=== PATIENT | female | born 1990 | race Caucasian/White ===

== ENCOUNTER 2019-06-08 18:58 | Emergency (ER) | payer OTHER, MEDICAID, SELFPAY ==
--- NOTE | 2019-06-08 19:01 | DI.RAD.S_ITS ---
PROCEDURE: XR ANKLE LT MIN 3V INDICATIONS: ankle injury TECHNIQUE: 3 views of the ankle were acquired. COMPARISON: None. FINDINGS: Bones: Mildly displaced, coronal oriented, intra-articular posterior malleolar fracture. Mildly comminuted, moderately displaced medial malleolar fracture. Moderately displaced spiral fracture of the distal fibula at the level of the syndesmosis. There is probable medial widening of the ankle mortise, difficult to determine given displacement of medial malleolar fragments. There is widening of the tibiotalar articulation anteriorly. Soft tissues: Moderate posterior tibiotalar joint effusion. Achilles tendon appears normal. Mild soft tissue swelling. IMPRESSION: Mild to moderately displaced trimalleolar fracture with slight anterior widening of the tibiotalar articulation and probable medial mortise widening. Dictated by: Rox Au M.D. on 06/08/2019 at 19:30 Approved by: Rox Au M.D. on 06/08/2019 at 19:33
--- NOTE | 2019-06-08 19:02 | ED.LOWEXIN ---
HPI - Extremity Injury (Lower) General Chief Complaint: Extremity Injury, Lower Stated Complaint: ankle injury Time Seen by Provider: 06/08/19 19:00 Source: patient and family Mode of arrival: wheelchair Limitations: no limitations History of Present Illness HPI Narrative: 29-year-old female nonsmoker on Suboxone presents by private auto for evaluation of a left ankle injury suffered this afternoon at 2:00 p.m.. She was walking on an uneven surface and her ankle turned in at which point she heard, and felt a pop and significant pain. She has been unable to bear weight since. She denies any knee or hip injury. She denies any numbness, tingling or weakness. She denies any history of ankle trouble. She has no head neck or back pain. She is otherwise well and free of complaints. She was seen and evaluated by the paramedics on [facility], given a pillow splint and some Tylenol and sent here complaint: ankle injury Onset (ago): hour(s) Type of Injury: inversion Place: street/outdoors Severity: moderate Relieving factors: immobilization and rest Exacerbating factors: weight bearing, movement and palpation Context: walking Associated symptoms: snap/pop sensation, swelling and unable to bear weight Other symptoms: none Treatments prior to arrival: cold therapy and splint Related Data Home Medications Medication Instructions Recorded Confirmed buprenorphine-naloxone [Suboxone] #0 06/24/16 sertraline 100 mg PO QDAY #0 tab 06/24/16 Previous Rx's Medication Instructions Recorded norethindrone (contraceptive) 0.35 mg PO QDAY #1 pac 06/24/16 [Ortho Micronor] Allergies Allergy/AdvReac Type Severity Reaction Status Date / Time No Known Drug Allergies Allergy Verified 06/08/19 19:12 Review of Systems Constitutional Denies chills, Denies fever(s), Denies lethargy and Denies weakness Eyes Denies change in vision, Denies eye discharge, Denies irritation and Denies loss of vision ENT Ears, Nose, Mouth, and Throat: Denies change in voice, Denies neck pain and Denies sore throat Cardiovascular Denies chest pain, Denies irregular heart rhythm, Denies lightheadedness, Denies palpitations, Denies dyspnea, Denies dyspnea on exertion and Denies orthopnea Respiratory Denies cough, Denies dyspnea, Denies dyspnea on exertion and Denies wheezing Gastrointestinal Gastrointestinal: Denies abdominal pain, Denies change in bowel habits, Denies diarrhea, Denies nausea and Denies vomiting Genitourinary Denies hematuria, Denies flank pain, Denies urinary incontinence and Denies urinary urgency Musculoskeletal Reports deformity, Reports joint swelling, Reports limited range of motion and Denies neck pain Integumentary/Breasts Denies pruritus, Denies erythema, Denies rash and Denies wounds Neurologic Denies confusion, Denies loss of vision and Denies weakness Psychiatric Denies anxiety, Denies confusion, Denies depression, Denies homicidal ideation and Denies suicidal ideation Endocrine Denies palpitations Hematologic/Lymphatic Denies easy bruising Allergic/Immunologic Denies wheezing [facility] Surgical History History of third molar tooth extraction Status post delivery (05/02/16) Status post dilation and curettage Social History Smoking Status: Never smoker Exam Narrative Exam Narrative: GEN: AOx3 and in mild distress EYES: Pupils are equal, round, and reactive to light and accommodation. Extraoccular muscles are intact bilaterally. There is no subconjunctival hemorrhage or exudate. CHEST: Lungs are clear to auscultation bilaterally and free of wheezes, rales, or rhonchi. Heart rate is regular rhythm, there are no murmurs, clicks, rubs, or gallops. There is no chest wall tenderness. ABD: Abdomen is soft and nontender. There is no guarding or rebound. Bowel sounds are normal in all 4 quadrants. There is no mass or organomegaly. EXT: Patient has decreased range of motion secondary to pain of left ankle, there is no obvious deformity but noted swelling and ecchymosis. Patient has tenderness throughout. Sensation is intact, cap refill less than 2 seconds with 2+ dorsalis pedis and posterior tibial pulses SKIN: Warm, pink, and dry. No erythema or rash Initial Vital Signs Initial Vital Signs: Vital Signs Pulse Rate 88 06/08/19 19:05 Respiratory Rate 22 06/08/19 19:05 Blood Pressure 158/97 H 06/08/19 19:05 Pulse Oximetry 97 06/08/19 19:05 Procedures Orthopedic Splinting/Casting Injury #1: Side: left Lower Extremity Injury Location: ankle Lower Extremity Immobilizer: posterior splint and stirrup splint Other Orthopedic Equipment: crutches Post splinting neuro exam: intact Post splinting vascular exam: intact Placed by: Nursing Course Orders Ordered: ED Orders 06/08/19 19:01 XR ankle LT min 3V Stat 06/08/19 19:10 CT LE LT wo con Stat Consultations Consultation #1: conversation with orthopedics (Dr. Go), splint (Bulky Jimenez w/heel padding), crutches, non-weight bearing and follow up Vital Signs - 8 hr 06/08/19 19:05 06/08/19 19:11 06/08/19 20:12 Temperature 98.3 F Pulse Rate 88 Pulse Rate [Left Dorsalis Pedis] 88 Respiratory Rate 22 Blood Pressure 158/97 H Pulse Oximetry 97 MDM - Extremity Injury (Lower) Imaging Data Ankle CT / XRay: Radiologist's impression: [address] [address] [address] Scan Report Signed Patient: Disha Damon [facility]#: [id number] : 1990Acct:[id number] Age/Sex: 29 / FDate of Service: 06/08/19 Loc: ED Accession Number: [id number] Procedure: CT LE LT wo con Ordering Provider: Arnel Oreilly D.O. PROCEDURE: CT LE LT W CON INDICATIONS: severe ankle fx, extension into tibial diaphysis TECHNIQUE: Noncontrast 1-1.5 mm axial sections acquired from above the tibiotalar joint to the bottom of the calcaneus, with coronal and sagittal reformats. COMPARISON: None. FINDINGS: Image quality: Excellent. Bones: Slightly oblique coronal oriented fracture of the distal tibia with mild anterior and posterior displacement of fracture fragments. There is probably only mild medial mortise widening. Moderately displaced transverse fracture across the medial malleolus is present with mild comminution just above the medial malleolus. Slightly oblique coronal fracture of the distal fibula at the level of the syndesmosis parallel to the tibial fracture is present resulting in slight anterior displacement of the proximal fracture fragment. A there is fairly well-maintained alignment of the distal tibiofibular relationship. Soft tissues: Moderate subcutaneous edema. A well-visualized anterior, medial, and lateral tendon groups appear grossly normal. The Achilles tendon maintains normal morphology. IMPRESSION: 1. Trimalleolar fracture as described with mild anterior and posterior distraction of fracture fragments at the ankle mortise. Dictated by: Rox Au M.D. on 06/08/2019 at 20:03 Approved by: Rox Au M.D. on 06/08/2019 at 20:11 Discharge Plan Departure Patient Disposition: Home Clinical Impression: Closed trimalleolar fracture of ankle Qualifiers: Encounter type: initial encounter Laterality: left Qualified Code(s): S82.852A - Displaced trimalleolar fracture of left lower leg, initial encounter for closed fracture Instructions: Ankle Fracture Activity Restrictions/Additional Instructions: *You have been diagnosed with [left ankle fracture] *What to do: *Take medications as directed *Follow up with [facility], call tomorrow morning for an appointment. Let them know you were seen in the Emergency Department and that we ask that you be seen in follow up *Return to ER if you should have any new, worsening or concerning symptoms, such as [worsening pain, numbness or tingling, pins and needle sensation, cold foot or other bothersome symptoms. No weight-bearing] Prescriptions: No Action sertraline 100 MG tablet 100 mg PO QDAY Qty: 0 RF: 0 buprenorphine-naloxone [Suboxone] 2 MG/0.5 MG film Qty: 0 RF: 0 norethindrone (contraceptive) [Ortho Micronor] 0.35 MG tablet 0.35 mg PO QDAY Qty: 1 RF: 11 Referrals: Farooq Go MD [Physician] -
[2019-06-08 19:05] VITALS: BP 158/97; PULSE 88; RESP 22; O2SAT 97
--- NOTE | 2019-06-08 19:10 | DI.CT.S_ITS ---
PROCEDURE: CT LE LT W CON INDICATIONS: severe ankle fx, extension into tibial diaphysis TECHNIQUE: Noncontrast 1-1.5 mm axial sections acquired from above the tibiotalar joint to the bottom of the calcaneus, with coronal and sagittal reformats. COMPARISON: None. FINDINGS: Image quality: Excellent. Bones: Slightly oblique coronal oriented fracture of the distal tibia with mild anterior and posterior displacement of fracture fragments. There is probably only mild medial mortise widening. Moderately displaced transverse fracture across the medial malleolus is present with mild comminution just above the medial malleolus. Slightly oblique coronal fracture of the distal fibula at the level of the syndesmosis parallel to the tibial fracture is present resulting in slight anterior displacement of the proximal fracture fragment. A there is fairly well-maintained alignment of the distal tibiofibular relationship. Soft tissues: Moderate subcutaneous edema. A well-visualized anterior, medial, and lateral tendon groups appear grossly normal. The Achilles tendon maintains normal morphology. IMPRESSION: 1. Trimalleolar fracture as described with mild anterior and posterior distraction of fracture fragments at the ankle mortise. Dictated by: Rox Au M.D. on 06/08/2019 at 20:03 Approved by: Rxo Au M.D. on 06/08/2019 at 20:11
[2019-06-08 19:11] VITALS: TEMP 36.8
[2019-06-08 20:12] VITALS: PULSE 88
== END 2019-06-08 20:32 | disposition home or self-care (01) ==
PROVIDERS: Emergency Provider Emergency Medicine; Family Provider Family Medicine; PCP Family Medicine
DX: S82.852A Displaced trimalleolar fracture of left lower leg, initial encounter for closed fracture (principal); X50.9XXA Other and unspecified overexertion or strenuous movements or postures, initial encounter; Y93.01 Activity, walking, marching and hiking
CPT/HCPCS: 29515; 73610; 73700; 99282; 99284

== ENCOUNTER 2019-06-15 10:56 | Day surgery (SDC) | payer OTHER, MEDICAID, SELFPAY ==
[2019-06-15] VITALS (7 sets, daily range): BP systolic 97–118; BP diastolic 54–71; PULSE 72–101; RESP 7–17; TEMP 36.5–36.8; O2SAT 95–98; BMI 31.4
--- NOTE | 2019-06-15 | DI.RAD.S_ITS ---
PROCEDURE: XR ANKLE LT MIN 3V INDICATIONS: ORIF of left ankle TECHNIQUE: AP, oblique, and lateral views of the left ankle were acquired. COMPARISON: [facility], CR, XR ANKLE LT MIN 3V, 06/08/2019, 18:53. FINDINGS: Intraoperative fluoroscopy documents placement of internal fixation hardware consisting of malleable plates and transverse screws within the distal left tibia and fibula internally fixating the previously identified metaphyseal and epiphyseal fractures of the distal tibia and fibula and resulting in improved alignment of fracture fragments. There are mild degenerative changes of the left hindfoot. A small plantar calcaneal spur is identified. There is diffuse soft tissue edema surrounding the left ankle with postsurgical changes including subcutaneous emphysema noted. IMPRESSION: Intraoperative fluoroscopy documenting the internal fixation of previously identified distal left tibia and fibula fractures, resulting in improved alignment of fracture fragments. Please see the surgeon's separately dictated operative report for procedural details. Dictated by: Benji Morrow M.D. on 06/16/2019 at 8:44 Approved by: Benji Morrow M.D. on 06/16/2019 at 8:50
[2019-06-15] MEDS: LACTATED RINGERS 1,000 ML 42 ML IV ×2 (11:55→17:29)
--- NOTE | 2019-06-15 13:56 | SUR.PREOP ---
Pt's spouse called, with pt permission, and notified OR room is delayed. Patient is still in pre-op.
--- NOTE | 2019-06-15 14:23 | PM.PREOP ---
Pre-operative Note Interval Note History & Physical reviewed/Exam performed by Physician: Yes Changes to H&P: No
[2019-06-15] MEDS: CEFAZOLIN 2 GM/100 ML FROZ.PIGGY IV (15:07)
--- NOTE | 2019-06-15 15:19 | P.OP_ITS ---
Operative Date/Time/Diagnoses Date of procedure: 06/15/19 Time of procedure: 03:30 Pre-op diagnosis: Left posterior pilon fracture, distal tib-fib fracture, S82.872 Left closed displaced fracture medial malleolus S82.52 Post-op diagnosis: same Procedure & Clinicians Procedure: Open treatment distal tibia and fibula fractures, left CPT code 31940 Open treatment medial malleolus fracture, left CPT code 19479 Same procedure as scheduled: Yes Indications: The patient is a 29-year-old female with a displaced posterior pilon, trimalleolar ankle fracture variant with significant involvement of the tibial plafond. She has a displaced unstable fracture and has been indicated for surgical treatment. The risks benefits alternatives to surgery were discussed with the patient in detail and include but are not limited to infection, nonunion, malunion, persistent pain, wound healing problems, arthritis, amputation, DVT, pulmonary embolism, stroke, paralysis, , symptomatic hardware. The patient has elected to proceed. Consent was signed in the office. The patient is a Suboxone patient we discussed 5 days of Toradol as well as using the regional block and avoiding narcotic medication. Patient may take ibuprofen after she finishes the Toradol prescription. We also extensively discussed smoking cessation. We discussed calcium vitamin-D supplementation. We discussed DVT prophylaxis with aspirin. The patient has no history of previous DVT or coagulopathy. Surgeon: Anjana Farah Click Yes if Unassisted: Yes Anesthesia Type: General and Peripheral nerve block Operative Notes Findings: Closed posterior pale on trimalleolar variant. Skin wrinkles present. Displaced oblique distal fibula fracture SER pattern was reduced and stabilized with inter fragmentary lag screws and a 1/3 tubular plate. Medial malleolus fracture was stabilized with 2 4.0 cannulated screws. Pilon was stabilized with 4 hole 1/3 tubular plate in buttress fashion and 3 separate anterior to posterior 4.0 cannulated screws Closure Type: primary Specimen(s): none sent Prosthetic devices, grafts, tissues, transplants, or devices: Arthrex 6 hole 1/3 tubular plate for lateral malleolus and lag screws. Arthrex 4.0 cannulated screws medial malleolus and posterior pilon Applied: other (splint) Estimated Blood Loss (mL): 20 Blood products transfused: none Tourniquet time (min): 120 Procedure in detail: A postoperative peripheral nerve block was placed by the anesthesia team for postoperative pain control. In the preoperative holding area, the appropriate limb and sites were marked, consent was again reviewed with the patient and all questions answered. A postoperative nerve block was placed by the anesthesia team for postoperative pain control. The patient was brought to the operating room, placed supine with an ipsilateral hip bump on the operating table and given anesthetic. Following successful levels of anesthesia, the patient was appropriately padded, position secured to the table. An SCD was placed on the contralateral leg. All bony prominences were well padded. A well- padded thigh tourniquet was placed. The surgical leg was then prepped and draped in the usual sterile fashion. A formal time-out procedure was completed confirming the patient, site and side of surgery and administration of appropriate preoperative antibiotics. All were in agreement. An Esmarch bandage was utilized to exsanguinate the limb and the tourniquet was raised on the thigh to 250 mmHg. Tourniquet was let down at 120 minutes Lateral incision was made just posterior to the fibula. Dissection was carried through the skin and subcutaneous tissue to the level of the fibula. The fracture was exposed and cleaned of debris. The interposed fragment was removed and the Fracture was reduced, restoring length rotation and anatomic alignment. A 3.0 lag screw was placed. At this time attention was turned to the posterior pilon aspect of the fracture and once this was reduced attention was then returned to the lateral malleolus which was eventually stabilized with an additional 6 hole Arthrex 1/3 tubular plate placed posterior lateral with a 2nd lag screw. 3.5 cortical screws were placed proximally and 1 locking screw placed distally to decreased prominence. Medial malleolus fixation: Attention was then turned to the medial side of the joint. A posterior medial approach to the medial malleolus and medial tibia was performed. The periosteum was reflected at the anterior medial malleolus fracture site and this was cleaned and reduced with a pointed reduction clamp. Two parallel K-wires were then placed and alignment checked on x-ray to confirm adequate position. The wires were then sequentially overdrilled and 2x 4.0mm cannulated screws were placed. The reduction was stable. Pilon: Posterior Mal: The very large posterior pilon component of the fracture was exposed posterior medially and mobilized. This was reduced looking at the posterior medial cortex and then clamped. This was checked on biplanar imaging and reduced the plafond nicely. This was held with anterior to posterior K- wires. The posterior pilon fracture was then fixed using 3 anterior to posterior cannulated screws and a posterior medial buttress plate with a 4 hole 1/3 tubular plate and screws. Following fixation of both the tibia and the fibula at the syndesmosis was stressed under external rotation and fluoroscopy. This was stable. Stability was confirmed under fluoro. The wounds were irrigated. We were quite satisfied with result clinically and radiographically. The tourniquet was released, and hemostasis achieved. The deep tissue was closed with 2 O Vicryl. Subcutaneous tissue was closed with 4 0 Monocryl in the skin with 3 O nylon. A sterile bulky dressing Jimenez style and posterior and U splint were applied. All counts were correct. The patient was then awoken and transported to recovery room in good condition. There no known immediate complications from this procedure. Complications: none Condition: stable Disposition: PACU Plan for aftercare: The patient will be nonweightbearing-( touchdown for balance ok) on the left lower extremity for minimum of 6 weeks. She is trying to avoid taking any narcotic medication. She will have a nerve block. She will take Toradol for 5 days. She will use aspirin 81 mg b.i.d. for DVT prophylaxis and do calf pumps. Once she has completed the Toradol she may take regular ibuprofen but not while she is taking Toradol. She may also take Tylenol for pain control. Follow-up in 2 weeks for suture removal. And early range of motion.
--- NOTE | 2019-06-15 15:43 | SUR.OPER ---
Supine on padded OR bed, head on pillow, arms secured on padded arm boards at <90 degrees abduction, legs uncrossed, safety belt at thigh, tape over blanket over lower right leg. Left leg bump under hip and lower leg. left leg drapped free
--- NOTE | 2019-06-15 15:45 | PM.PROC.1 ---
Procedures Date/Time Date of procedure: 06/15/19 Time of procedure: 14:35 General Procedure description: Ultrasound guided popliteal sciatic and adductor canal saphenous nerve block for post op pain control after left ankle ORIF by Dr. Farah. Risk and benefits of procedure discussed with patient. ASA monitoring applied to patient. Oxygen given via nasal cannula. 2 mg Versed and 100 mcg fentanyl given for procedural sedation. Skin site was prepped with chlorhexidine and allowed to fully dry. Sterile gloves, mask, hat and probe cover were used to maintain sterility. 2% lidocaine and 30ga needle was used to make a small skin wheal at needle insertion site. Under ultrasound guidance, a 21ga 100mm Pajunk needle was directed near the division of the sciatic nerve into tibial and peroneal nerve in the popliteal fossa (lateral approach). Patient reported no parasthesias. After negative aspiration, 20 mL 0.5% ropivicaine and 5mg dexamethasone were injected around sciatic nerve. Similarly, the saphenous nerve was blocked in the adductor canal and level of the mid thigh. US guidance used to find and avoid femoral artery. After negative aspiration, injected 0.5% ropivicaine and 5 mg dexamethasone. Patient tolerated procedure well. Sciatic nerve upper photo, saphenous nerve lower photo
--- NOTE | 2019-06-15 15:48 | P.PCN_ITS ---
Procedures Date/Time Date of procedure: 06/15/19 Time of procedure: 14:35 General Procedure description: Ultrasound guided popliteal sciatic and adductor canal saphenous nerve block for post op pain control after left ankle ORIF by Dr. Farah. Risk and benefits of procedure discussed with patient. ASA monitoring applied to patient. Oxygen given via nasal cannula. 2 mg Versed and 100 mcg fentanyl given for procedural sedation. Skin site was prepped with chlorhexidine and allowed to fully dry. Sterile gloves, mask, hat and probe cover were used to maintain sterility. 2% lidocaine and 30ga needle was used to make a small skin wheal at needle insertion site. Under ultrasound guidance, a 21ga 100mm Pajunk needle was directed near the division of the sciatic nerve into tibial and peroneal nerve in the popliteal fossa (lateral approach). Patient reported no parasthesias. After negative aspiration, 20 mL 0.5% ropivicaine and 5mg dexa methasone were injected around sciatic nerve. Similarly, the saphenous nerve was blocked in the adductor canal and level of the mid thigh. US guidance used to find and avoid femoral artery. After negative aspiration, injected 0.5% ropivicaine and 5 mg dexamethasone. Patient tolerated procedure well. Sciatic nerve upper photo, saphenous nerve lower photo
[2019-06-15] MEDS: ACETAMINOPHEN 325 MG TABLET 975 MG PO (19:24)
--- NOTE | 2019-06-15 19:33 | SUR.PHASEI ---
1929: Pt medicated with tylenol for back pain pt had prior to hospitalization. L foot/ankle has no pain due to effective nerve block.
--- NOTE | 2019-06-15 19:35 | SUR.PHASEII ---
given prescriptions to get filled, will come back when ready.
--- NOTE | 2019-06-15 20:02 | SUR.PHASEII ---
returned from getting meds, d/c instructions discussed, pt voiced an understanding, vuy pass faxed, pt assisted to BR steady when up. dressing remained c/d/i. pt left unit in stable condition.
== END 2019-06-15 19:57 | disposition home or self-care (01) ==
PROVIDERS: PCP Family Medicine; Visit Provider Orthopaedic Surgery Foot and Ankle Surgery
PROC: (CPT 27828; principal; 2019-06-15 13:15)
DX: S82.872A Displaced pilon fracture of left tibia, initial encounter for closed fracture (principal); S82.852A Displaced trimalleolar fracture of left lower leg, initial encounter for closed fracture; F32.9 Major depressive disorder, single episode, unspecified; G89.18 Other acute postprocedural pain; F17.210 Nicotine dependence, cigarettes, uncomplicated; W01.0XXA Fall on same level from slipping, tripping and stumbling without subsequent striking against object, initial encounter
CPT/HCPCS: 27828; 64445; 27766; 73610; 76000; J0690; J1100; J2250; J2405; J2704; J3010

== ENCOUNTER → 2020-03-06 13:42 | Outpatient (CLI) | payer OTHER, MEDICAID, SELFPAY ==
[2020-03-06 14:33] LABS: Add Manual Diff / Slide Review NO; Basophils Absolute Auto 0 /uL (0-100); Basophils Percent Auto 0.5 % (0-2); Eosinophils Absolute Auto 200 /uL (0-450); Eosinophils Percent Auto 2.8 % (2-4); Hematocrit 36.2 % (36-46); Hemoglobin 12.2 g/dL (12.0-16.0); Lymphocytes Absolute Auto 2200 /uL (1100-4500); Lymphocytes Percent Auto 29.1 % (25-40); Mean Corpuscular HGB Conc 33.7 % (30-36); Mean Corpuscular Hemoglobin 28.2 PG (26-34); Mean Corpuscular Volume 83.4 fL (80-100); Monocytes Absolute Auto 500 /uL (0-900); Monocytes Percent Auto 6.7 % (3-14); Neutrophils Absolute Auto 4500 /uL (1500-7000); Neutrophils Percent Auto 60.9 % (50-75); Platelet Count 214 X10^3/uL (150-400); Red Blood Cell Count 4.34 X10^6/uL (4.0-5.2); White Blood Cell Count 7.4 X10^3/uL (4.5-11.0)
[2020-03-06 14:36] LABS: Appearance Urine UA CLEAR; Bilirubin Urine UA NEGATIVE (NEGATIVE); Color Urine UA YELLOW; Glucose Urine UA NEGATIVE (Negative); Ketones Urine UA NEGATIVE (NEGATIVE); Leukocyte Esterase Urine UA NEGATIVE (NEGATIVE); Nitrite Urine UA NEGATIVE (Negative); Occult Blood Urine UA NEGATIVE (Negative); Protein Urine UA NEGATIVE (Negative); Urobilinogen Urine UA 0.2 E.U./dL (0.2)
[2020-03-06 14:37] LABS: pH Urine UA 6.5 (4.5-8.0)
[2020-03-06 16:00] LABS: Hepatitis B Surface Antigen NEGATIVE s/c (NEGATIVE); Rubella Antibody IgG 51.4 IU/mL (>15)
[2020-03-06 16:12] LABS: HIV 1 & 2 Ab/Ag 4th Gen Combo NEGATIVE (NEGATIVE)
[2020-03-06 17:05] LABS: Hep C Virus Ab w/Reflex Quant NEGATIVE s/c (NEGATIVE)
[2020-03-07 03:49] LABS: RPR Screen Non Reactive (Non Reactive)
[2020-03-07 07:28] LABS: Varicella IgG Antibody 1187 index (Immune >165)
== END ==
PROVIDERS: PCP Family Medicine; Referring Provider Obstetrics & Gynecology; Visit Provider Obstetrics & Gynecology
DX: Z34.81 Encounter for supervision of other normal pregnancy, first trimester (principal); Z3A.11 11 weeks gestation of pregnancy
CPT/HCPCS: 36415; 80055; 81003; 84163; 86787; 86803; 86850; 86900; 86901; 87086; 87389

== ENCOUNTER → 2020-05-08 11:51 | Outpatient (CLI) | payer OTHER, MEDICAID, SELFPAY ==
--- NOTE | 2020-05-08 11:52 | DI.US.S_ITS ---
PROCEDURE: US OB >= 14 WEEKS FETUS INDICATIONS: ANATOMY SCAN OUTSIDE/PRIOR DATING DATA: First dating scan (date and location): 03/06/20. Estimated date of delivery (TAMMI) from first dating scan: 09/23/20. TECHNIQUE: Real-time scanning was performed of the fetus, with image documentation and biometric measurements. Endovaginal scanning: No COMPARISON: [facility], OB <= 14 WEEKS FETUS, 03/06/2020, 13:10. [facility], OB <= 14 WEEKS FETUS, 04/03/2020, 15:22. FINDINGS: General: A single living intrauterine gestation is present. Presentation: Transverse. Placenta: Placental position is anterior, and low lying with the inferior margin of the placenta 8 millimeters above the internal cervical os Amniotic fluid index: 7.4 cm, normal range is 5-24 cm. heart rate: 162 beats per minute. Maternal cervical canal: 4.2 cm long. Normal lower limit is 2.5 cm. biometrics: Biparietal diameter: 19 weeks 5 days Head circumference: 20 weeks 0 days Abdominal circumference: 20 weeks 2 days Femur length: 20 weeks 2 days Estimated gestational age from initial scan: 20 weeks 2 days Composite gestational age from present scan: 20 weeks 1 day Estimated weight and percentile: 341 g; 43rd percentile Measurement variability for biometric dating: +/- 7 days from 14 weeks to 15 weeks 6 days gestation, +/- 10 days from 16 weeks to 21 weeks 6 days gestation, +/- 2 weeks from 22 weeks to 27 weeks 6 days gestation, +/- 3 weeks for 28 weeks gestation or later. weight reference: 4500 g or EFW >90/95% is considered macrosomia or large for gestational age. EFW <10% is small for gestational age. EFW 5% or less is considered intra-uterine growth restriction. Anatomic survey: Neuro: Ventricles are non-dilated at less than 10 mm. Cisterna magna is normal at 3-11 mm. Cerebellum is normal in size and morphology. Nuchal skin fold: Normal at less than 6 mm between 14-21 weeks gestational age. Face: Nose and lips are normal. Facial profile not well-seen. Spine: No evidence for spina bifida. Heart: Suboptimally visualized. Diaphragm: Diaphragm is intact. Stomach: Left-sided stomach is present. Kidneys: No hydronephrosis. Normal is less than 5 mm in 2nd trimester, less than 7 mm in 3rd trimester. Cord: 3-vessel cord has orthotopic insertion. Bladder: Normal in size. Extremities: All 4 extremities identified. IMPRESSION: 1. Single living IUP redemonstrated and interval growth is normal. 2. face and heart suboptimally visualized; otherwise normal anatomy. Followup recommended. 3. Amniotic fluid index is less than the 5th percentile for age. Followup recommended. 4. Low lying placenta. Dictated by: Dorian Chew [facility] Interpreted: Yonny Rivas MD on 05/08/2020 at 14:40 Approved by: Yonny Rivas M.D. on 05/08/2020 at 15:16
== END ==
PROVIDERS: PCP Family Medicine; Referring Provider Obstetrics & Gynecology; Visit Provider Obstetrics & Gynecology
DX: Z34.82 Encounter for supervision of other normal pregnancy, second trimester (principal); Z3A.20 20 weeks gestation of pregnancy
CPT/HCPCS: 76811

== ENCOUNTER → 2020-05-23 11:49 | Outpatient (CLI) | payer OTHER, MEDICAID, SELFPAY ==
--- NOTE | 2020-05-23 11:50 | DI.US.S_ITS ---
PROCEDURE: US OB FOLLOW UP INDICATIONS: FACE AND HEART NOT WELL SEEN OBSTETRIC FOLLOW-UP OUTSIDE/PRIOR DATING DATA: First dating scan (date and location): 03/06/2020 . Estimated date of delivery (TAMMI) from first dating scan: 09/23/2020 . TECHNIQUE: Real-time scanning was performed of the fetus, with image documentation and biometric measurements. Endovaginal scanning: No COMPARISON: None. FINDINGS: General: A single living intrauterine gestation is present. Presentation: Transverse. Placenta: Placental position is anterior , and low lying with the inferior margin of the placenta less than 2 cm above the internal cervical os.. Amniotic fluid index: 7.0 cm, normal range is 5-24 cm. heart rate: 157 beats per minute. Maternal cervical canal: 4.4 cm long. Normal lower limit is 2.5 cm. Estimated gestational age from initial scan: 22 weeks 3 days Other: Normal appearance of the facial profile and cardiac outflow tracts. IMPRESSION: 1. Single living IUP redemonstrated and normal appearance of the cardiac outflow tracts and facial profile. 2. Low-lying placenta. Follow-up is recommended. 3. Amniotic fluid index less than the 5th percentile for age. Follow-up recommended. Dictated by: Dorian BARKSDALE Interpreted: Lizy Rhodes MD on 05/23/2020 at 13:29 Approved by: Lizy Rhodes M.D. on 05/23/2020 at 13:43
== END ==
PROVIDERS: PCP Family Medicine; Referring Provider Specialist; Visit Provider Specialist
DX: Z36.2 Encounter for other antenatal screening follow-up (principal); Z3A.22 22 weeks gestation of pregnancy
CPT/HCPCS: 76816